=== PATIENT | male | born 1970 | race Caucasian/White ===

== ENCOUNTER 2019-02-19 19:00 | Emergency (ER) | payer SELFPAY ==
[~2019-02-19] VITALS: Ht 167.6 cm; Wt 77.1 kg
[2019-02-19 19:09] VITALS: Ht 167.6 cm; Wt 77.1 kg
[2019-02-19 20:15] LABS: UA SPECIFIC GRAVITY >=1.030 (1.005-1.035); microscopic required? YES; urine erythrocyte 3+ (NEGATIVE)
[2019-02-19 21:15] VITALS: BP 145/83
== END 2019-02-19 21:15 | disposition home or self-care (01) ==
LOC: ED 19:00
PROVIDERS: Emergency Medicine
DX: N45.1 Epididymitis (principal)
CPT/HCPCS: 87491; 87591; J0696; Q0092

== ENCOUNTER 2019-02-22 12:05 | Emergency (ER) | payer SELFPAY ==
[~2019-02-22] VITALS: Ht 167.6 cm; Wt 77.6 kg
[2019-02-22 12:11] VITALS: BP 153/89; Ht 167.6 cm; Wt 77.6 kg
== END 2019-02-22 12:19 | disposition left against medical advice (07) ==
LOC: ED 12:05
DX: Z53.21 Procedure and treatment not carried out due to patient leaving prior to being seen by health care provider (principal)